=== PATIENT | female | born 1995 | race Caucasian/White ===

== ENCOUNTER 2021-06-15 18:24 | Emergency (ER) | payer SELFPAY ==
[~2021-06-15] VITALS: Ht 160 cm; Wt 56.7 kg
== END 2021-06-15 23:32 | disposition left against medical advice (07) ==
LOC: ED 18:24
DX: R51.9 Headache, unspecified (principal); R50.9 Fever, unspecified; Z53.21 Procedure and treatment not carried out due to patient leaving prior to being seen by health care provider

== ENCOUNTER 2021-06-17 05:31 | Emergency (ER) | payer OTHER ==
[~2021-06-17] VITALS: Ht 160 cm; Wt 56.7 kg
== END 2021-06-17 14:33 | disposition home or self-care (01) ==
LOC: ED 05:31
DX: O98.511 Other viral diseases complicating pregnancy, first trimester (principal); U07.1 COVID-19; Z3A.01 Less than 8 weeks gestation of pregnancy